=== PATIENT | female | born 1980 | race Hispanic/Latino ===

== ENCOUNTER 2020-07-12 11:35 | Outpatient (CLI) | payer BC | END 2020-07-12 11:36 | disposition home or self-care (01) | LOC: BICRAD 11:35 | PROVIDERS: ATTEND Internal Medicine Rheumatology | DX: H15.092 Other scleritis, left eye (principal); M35.00 Sjogren syndrome, unspecified; R76.8 Other specified abnormal immunological findings in serum; M46.1 Sacroiliitis, not elsewhere classified | CPT/HCPCS: 71046; 72202 ==

== ENCOUNTER 2020-08-14 11:32 | Emergency (ER) | payer BC ==
[2020-08-14 12:31] LABS: Hemoglobin 11.9 g/dL (12.0-16.0); Mean Corpuscular Hemoglobin 31.5 pg (27.0-31.0); Mean Corpuscular Volume 95.3 fL (78.0-98.0); Mean Platelet Volume 8.2 fL (7.4-10.4); Platelet Count 132 thou/uL (130-400); RBC Distribution Width 12.5 % (11.5-14.5); Red Blood Cell (RBC) Count 3.79 mill/uL (4.20-5.40); White Blood Cell (WBC) Count 7.1 thou/uL (4.8-10.8)
[2020-08-14 12:46] LABS: MDiff Complete? YES
[2020-08-14 12:47] LABS: Band 3 % (5-11); Lymphocytes 7 % (21-51); Neutrophil 86 % (42-75); Ovalocytes SLIGHT = 2-5 cells (100X) (0-1/hpf); Platelet Morphology Comment Appears Adequate; Polychromasia SLIGHT = 2-3 cells (100X) (0-2/hpf); Reactive Lymphocytes 4 % (0-10)
[2020-08-14 12:50] LABS: ALT (SGPT) 96 U/L (8-55); AST (SGOT) 37 U/L (5-34); Albumin 3.7 g/dL (3.5-5.0); Alkaline Phosphatase 48 U/L (40-110); Anion Gap 11 mmol/L (10-20); BUN (Urea Nitrogen) 18 mg/dL (7.0-18.7); Bilirubin, Total 0.3 mg/dL (0.2-1.2); Calc. Creatinine Clearance 0 mL/min (70-130); Calcium 9.1 mg/dL (7.8-10.44); Carbon Dioxide 25 mmol/L (22-29); Chloride 105 mmol/L (98-107); Glucose 113 mg/dL (70-105); Potassium 4.1 mmol/L (3.5-5.1); Protein, Total 6.7 g/dL (6.0-8.3); Sodium 137 mmol/L (136-145)
[2020-08-14 13:47] LABS: Bilirubin Negative (Negative); Blood, Urine Negative (Negative); Clarity Clear (Clear); Glucose, Urine (Dipstick) Normal (Negative); Ketone, Urine Negative (Negative); Leukocyte Negative Leu/uL (Negative); Nitrite Negative (Negative); Protein, Urine (Dipstick) Negative (Neg-Trace); Specific Gravity, Urine 1.006 (1.002-1.036); Urobilinogen Normal mg/dL (Less than 2); pH, Urine 7.5 (5.0-9.0)
== END 2020-08-14 15:17 | disposition home or self-care (01) ==
LOC: ERS 11:32
DX: R53.1 Weakness (principal); R42 Dizziness and giddiness; R60.0 Localized edema; R35.0 Frequency of micturition; M06.9 Rheumatoid arthritis, unspecified; Z79.899 Other long term (current) drug therapy
CPT/HCPCS: 36415; 80053; 81003; 83880; 84443; 84484; 85025; 93005

== ENCOUNTER 2020-09-05 10:02 | Outpatient (CLI) | payer BC | END 2020-09-05 10:03 | disposition home or self-care (01) | LOC: BICMAMMO 10:02 | PROVIDERS: ATTEND Physician Assistant | DX: Z12.31 Encounter for screening mammogram for malignant neoplasm of breast (principal); Z80.3 Family history of malignant neoplasm of breast | CPT/HCPCS: 77063; 77067 ==

== ENCOUNTER 2020-09-16 07:04 | Outpatient (CLI) | payer BC | END 2020-09-16 07:05 | disposition home or self-care (01) | LOC: BICULT 07:04 | PROVIDERS: ATTEND Internal Medicine Rheumatology | DX: R74.8 Abnormal levels of other serum enzymes (principal) | CPT/HCPCS: 76705 ==

== ENCOUNTER 2020-10-14 13:56 | Outpatient (CLI) | payer BC | END 2020-10-14 13:57 | disposition home or self-care (01) | LOC: BICRAD 13:56 | PROVIDERS: ATTEND Internal Medicine Rheumatology | DX: M25.552 Pain in left hip (principal) ==

== ENCOUNTER 2020-11-13 09:10 | Outpatient (CLI) | payer BC | END 2020-11-13 09:11 | disposition home or self-care (01) | LOC: BICMRI 09:10 | PROVIDERS: ATTEND Internal Medicine Rheumatology | DX: M48.07 Spinal stenosis, lumbosacral region (principal); M47.817 Spondylosis without myelopathy or radiculopathy, lumbosacral region | CPT/HCPCS: 72148 ==

== ENCOUNTER 2021-10-07 21:22 | Observation (INO) | payer BC ==
[2021-10-07] MEDS ORDERED: Morphine 2 MG/ML VIAL SLOW IVP PRN (22:11)
[2021-10-07] MEDS ORDERED: Ondansetron PF 4 MG/2 ML Vial IVP PRN (22:12)
[2021-10-07] MEDS ORDERED: Piperacillin/Tazobactam 3.375 GM in Sodium Chloride 0.9% 100 ML IVPB SCH (22:15)
[2021-10-07] MEDS ORDERED: D5 1/2 NS w/20 mEq KCL 1,000 ML IV SCH (22:15)
[2021-10-08 01:06] VITALS: BMI 32.8
[2021-10-08] MEDS ORDERED: Acetaminophen 325 MG TAB PO PRN (02:06)
[2021-10-08 02:09] LABS: SARS-CoV-2 NAA Rapid Test Not Detected (NotDetected)
[2021-10-08] MEDS: Piperacillin/Tazobactam 3.375 GM in Sodium Chloride 0.9% 100 ML IVPB SCH ×2 (02:16→15:52)
[2021-10-08] MEDS ORDERED: Ketorolac Tromethamine 30 MG/ML VIAL ONE (09:10)
[2021-10-08] MEDS ORDERED: Midazolam HCl 2 mg/2 ml Vial ONE (09:37)
[2021-10-08] MEDS ORDERED: fentaNYL Citrate/PF 100 MCG/2 ML SYRINGE ONE (09:38)
[2021-10-08] MEDS ORDERED: Sodium Chloride 0.9% 100 ML ONE (10:04)
[2021-10-08] MEDS ORDERED: Piperacillin/Tazobactam 3.375 GM VIAL ONE (10:04)
[2021-10-08] MEDS ORDERED: Lidocaine 1% w/Epinephrine 1:100K 20 ML VIAL ONE (10:42)
[2021-10-08] MEDS ORDERED: Bupivacaine 0.25% HCL 30 ML VIAL ONE (10:42)
[2021-10-08] MEDS ORDERED: Hydrocortisone Sod Succ/PF 100 mg/2 ml Vial ONE (10:45)
[2021-10-08] MEDS ORDERED: SUGAMMADEX SODIUM 200 MG/2 ML VIAL ONE (10:45)
[2021-10-08] MEDS ORDERED: Glycopyrrolate 0.2 MG/ML 5 ML SYRINGE ONE (11:08)
[2021-10-08] MEDS ORDERED: Lidocaine 1% PF 5 ML VIAL ONE (11:08)
[2021-10-08] MEDS ORDERED: Rocuronium Bromide 10 MG/ML (10ML VIAL) ONE (11:08)
[2021-10-08] MEDS ORDERED: PROPOFOL 200 MG/20 ML VIAL ONE (11:08)
[2021-10-08] MEDS ORDERED: Ondansetron PF 4 MG/2 ML Vial ONE (11:08)
[2021-10-08] MEDS ORDERED: Morphine 4 MG/ML VIAL SLOW IVP PRN (12:04)
[2021-10-08] MEDS ORDERED: Promethazine HCl 25 MG/ML VIAL IM PRN (12:04)
[2021-10-08] MEDS ORDERED: Dextrose 50% Abboject 50 ML SYRINGE SLOW IVP PRN (12:04)
[2021-10-08] MEDS ORDERED: HYDROcodone/Acetaminophen 10/325 mg Tablet PO PRN ×2 (12:04)
[2021-10-08] MEDS ORDERED: hydrALAZINE 20 MG/ML VIAL SLOW IVP PRN (12:04)
[2021-10-08] MEDS ORDERED: Ondansetron PF 4 MG/2 ML Vial IVP PRN (12:04)
[2021-10-08] MEDS ORDERED: Dextrose 5% in Water 1,000 ML IV PRN (12:04)
[2021-10-08] MEDS ORDERED: D5 1/2 NS w/20 mEq KCL 1,000 ML IV SCH (12:15)
[2021-10-08 15:26] VITALS: BP 105/75; TEMP 97.9
[2021-10-08] MEDS ORDERED: Ketorolac Tromethamine 30 MG/ML VIAL IVP SCH (18:00)
[2021-10-08] MEDS ORDERED: Famotidine/PF 20 mg/2ml Vial SLOW IVP SCH (21:00)
[2021-10-08] MEDS ORDERED: Famotidine 20 MG TAB PO SCH (21:00)
== END 2021-10-08 18:42 | disposition home or self-care (01) ==
LOC: SURG B 21:56
PROVIDERS: ADMIT Surgery; ATTEND Surgery
PROC: 0DTJ4ZZ Resection of Appendix, Percutaneous Endoscopic Approach (ICD-10-PCS; principal; 2021-10-08)
DX: K35.30 Acute appendicitis with localized peritonitis, without perforation or gangrene (principal); K38.8 Other specified diseases of appendix; M06.9 Rheumatoid arthritis, unspecified; M32.9 Systemic lupus erythematosus, unspecified; M35.00 Sjogren syndrome, unspecified; M19.90 Unspecified osteoarthritis, unspecified site; Z79.52 Long term (current) use of systemic steroids; Z79.899 Other long term (current) drug therapy; Z20.822 Contact with and (suspected) exposure to COVID-19
CPT/HCPCS: 88304; 96374; A4649; C1776; G0378; J1720; J1885; J2250; J2405; J2543; J2704; J2710; J3480; J3490; S0020; U0002

== ENCOUNTER 2021-11-05 08:41 | Outpatient (CLI) | payer BC | END 2021-11-05 08:42 | disposition home or self-care (01) | LOC: BICRAD 08:41 | PROVIDERS: ATTEND Orthopaedic Surgery | DX: M54.16 Radiculopathy, lumbar region (principal); M46.1 Sacroiliitis, not elsewhere classified; M53.3 Sacrococcygeal disorders, not elsewhere classified | CPT/HCPCS: 72100; 72190 ==

== ENCOUNTER 2024-01-31 14:50 | Outpatient (CLI) | payer BC | END 2024-01-31 14:51 | disposition home or self-care (01) | LOC: BICMAMMO 14:50 | PROVIDERS: ATTEND Family Medicine | DX: Z12.31 Encounter for screening mammogram for malignant neoplasm of breast (principal); Z80.3 Family history of malignant neoplasm of breast | CPT/HCPCS: 77063; 77067 ==